=== PATIENT | female | born 1940 | race Caucasian/White ===

== ENCOUNTER → 2018-09-22 | Outpatient (CLI) | payer MEDICARE ==
[~2018-09-22] MED LIST: ALE70 PO; AMLO2.5T78 PO; ASPI-1267 PO; BEN20 PO; CALC-649 PO; CLO75 PO; FISH OIL1 CAP PO; HCTZ25 PO; LOR7.5/325 PO; METO-1 PO; METO50TA PO; MULT-1335 PO; NIFE30TA4 PO; NITR0.3T6; NITR0.4T3 SL; PRAV10TA46 PO; SIMV-42 PO; WARF10TA10 PO
--- NOTE | 2018-09-22 15:37 | RADIOLOGY IMAGING REPORT ---
FACILITY: [facility] [place] PATIENT NAME: Soha Kevin : 1940 MR: [id number] V: [id number] EXAM DATE: ORDERING PHYSICIAN: JEFE BARFIELD TECHNOLOGIST: [place] [facility] [place] Soha Kevin : 1940 Visit/Account:[id number] Date of Sevice: 09/22/2018 CAROTID HISTORY: Carotid stenosis COMPARISON: None. FINDINGS: Grayscale, duplex and color Doppler interrogation of the extracranial carotid and vertebral arteries was performed bilateral. On the right, peak systolic velocities within the common and internal carotid arteries are 85 and 108 cm/sec respectively. There is a small to moderate amount of calcified plaque right carotid bulb. A ntegrade flow within the common, internal and external carotid arteries as well as vertebral artery. ICA/CCA ratio 1.3. On the left, peak systolic velocities within the common and internal carotid arteries are 127 and 113 cm/sec respectively. There is a small to moderate amount of plaque at the left carotid bulb. Anteg rade flow within the common, internal and external carotid arteries as well as vertebral artery. ICA/ CCA ratio 1. IMPRESSION: Small to moderate amount of plaque at the carotid bulbs bilaterally although no hemodynamically signi ficant lesions by velocity criteria Velocity criteria are extrapolated from diameter data as defined by the Society of Radiologists in Ul trasound Consensus Conference Radiology 2003; 229;340-346 Report Dictated By: Paz Webb MD at 09/22/2018 2:39 PM Report E-Signed By: Paz Webb MD at 09/22/2018 3:32 PM GERARDON:ZENOBIA
== END ==
LOC: US 09-18 02:00
PROVIDERS: ATTEND Internal Medicine
DX: I65.23 Occlusion and stenosis of bilateral carotid arteries (principal)
CPT/HCPCS: 93880

== ENCOUNTER → 2019-01-11 | Outpatient (CLI) | payer MEDICARE ==
[~2019-01-11] MED LIST changes: +GADOBENATE 529MG/1ML 15ML VIAL IVP ONE
--- NOTE | 2019-01-11 16:48 | RADIOLOGY IMAGING REPORT ---
FACILITY: [facility] PATIENT NAME: Soha Kevin : 1940 MR: [id number] V: [id number] EXAM DATE: ORDERING PHYSICIAN: YVROSE BROCK TECHNOLOGIST: Location: [facility] Patient: Soha Kevin : 1940 Visit/Account:[id number] Date of Sevice: 01/11/2019 EXAMINATION: MRI Brain without intravenous contrast MRI Brain with intravenous contrast HISTORY: Neurologic deficit. COMPARISON: None available. TECHNIQUE: Multi-planar, multi-sequence brain MRI was performed before and after IV gadolinium. CONTRAST: 12 mL of IV MultiHance FINDINGS: Brain volume: Normal. Sagittal midline structures: Negative. Ventricles: Negative. Acute ischemic changes: None. Hemorrhage: None. Masses / edema: None. Enhancement: Negative. Carlson-white: Chronic lacunar infarction in the right anterior thalamus and adjacent posterior internal capsule and posterior basal ganglia. White matter: A few T2/FLAIR hyperintensities in the deep white matter bilaterally. Vessels: Negative. Extra-axial: Negative. Calvarium / scalp: Negative. Skull base: Negative. Visualized sinuses / orbits: Negative. Visualized upper neck: Negative. IMPRESSION: 1. No acute intracranial abnormality. 2. Chronic lacunar infarction in the right anterior thalamus and adjacent posterior internal capsule and posterior basal ganglia. 3. Mild chronic white matter disease is nonspecific but most likely represents chronic microvascular ischemia. Report Dictated By: Seamus Musa MD at 01/11/2019 4:37 PM Report E-Signed By: Seamus Musa MD at 01/11/2019 4:41 PM WSN:[id number]
== END ==
LOC: MRI 07:13
PROVIDERS: ATTEND Psychiatry & Neurology Neurology
DX: G45.2 Multiple and bilateral precerebral artery syndromes (principal); G45.9 Transient cerebral ischemic attack, unspecified
CPT/HCPCS: 70553; A9577